=== PATIENT | female | born 1940 | race Caucasian/White ===

== ENCOUNTER 2017-05-25 20:18 | Emergency (ER) | payer OTHER ==
[~2017-05-25] VITALS: Ht 165.1 cm; Wt 59.4 kg
[2017-05-25 21:04] LABS: HEMATOCRIT 42.7 % (36.0-46.0); MCH 27.9 PG (29.0-34.0); MCHC 32.3 G/DL (30.0-36.0); MCV 86.3 FL (83-99); MEAN PLAT.VOLUME 10.3 uM^3 (9.5-12.4); PLATELET COUNT 200 K/uL (156-360); RBC DIS.WIDTH-CV 15.6 % (11.8-14.6); RBC DIS.WIDTH-SD 49.2 % (39-53); RED BLOOD COUNT 4.95 M/uL (3.80-5.20); WHITE BLOOD COUNT 9.4 K/uL (4.1-10.2)
[2017-05-25 21:29] LABS: ANION GAP 7 MEQ/L (2-14); CHLORIDE 102 MEQ/L (99-109); SAMPLE HEMOLYSIS CHECK 0; SAMPLE ICTERIC CHECK 0; SAMPLE LIPEMIA CHECK 0; SODIUM 140 MEQ/L (136-147)
[2017-05-25 21:34] LABS: GFR ESTIMATE (CALCULATED) > 59 mL/min/; GLUCOSE 118 mg/dL (70-99); UREA NITROGEN (BUN) 9 mg/dL (9-23)
[2017-05-25 21:48] LABS: INTER. NORMALIZED RATIO 2.8; PROTHROMBIN TIME 31.6 SEC (10.2-12.9)
[2017-05-25 21:50] LABS: PTT 40.1 SEC (25-37)
[2017-05-25] MEDS ORDERED: CELEXA20 MG PO (22:35)
[2017-05-25] MEDS ORDERED: ADULT ASPIRIN R81 MG PO (22:35)
[2017-05-25] MEDS ORDERED: SINGULAIR10 MG PO (22:35)
[2017-05-25] MEDS ORDERED: DIGOX125 MCG PO (22:35)
[2017-05-25] MEDS ORDERED: LISINOPRIL10 MG PO (22:35)
[2017-05-25] MEDS ORDERED: DUONEB 2.5-0.5 M3 ML AEROSOL (22:35)
[2017-05-25] MEDS ORDERED: GABAPENTIN100 MG PO (22:36)
[2017-05-25] MEDS ORDERED: ALPRAZOLAM0.5 MG PO (22:36)
[2017-05-25] MEDS ORDERED: COUMADIN3 MG PO (22:36)
[2017-05-25] MEDS ORDERED: COUMADIN2 MG PO (22:36)
[2017-05-25] MEDS ORDERED: ATENOLOL25 MG PO (22:36)
[2017-05-25] MEDS ORDERED: HYDROCODON-ACE1 EAC7 PO (22:37)
[2017-05-25] MEDS ORDERED: PROTONIX40 MG PO (22:37)
[2017-05-25] MEDS ORDERED: GLIPIZIDE5 MG PO (22:37)
[2017-05-25] MEDS ORDERED: DOXYCYCLINE MO100 M1 PO (23:00)
[2017-05-25 23:58] VITALS: BP 150/76
== END 2017-05-25 23:59 | disposition home or self-care (01) ==
LOC: EME 20:18
PROVIDERS: Emergency Medicine
DX: J18.9 Pneumonia, unspecified organism (principal); J44.0 Chronic obstructive pulmonary disease with (acute) lower respiratory infection; R04.2 Hemoptysis; R04.0 Epistaxis; I10 Essential (primary) hypertension; E11.40 Type 2 diabetes mellitus with diabetic neuropathy, unspecified; E78.5 Hyperlipidemia, unspecified; M79.7 Fibromyalgia; Z99.81 Dependence on supplemental oxygen; Z87.891 Personal history of nicotine dependence; Z79.82 Long term (current) use of aspirin; Z79.01 Long term (current) use of anticoagulants
CPT/HCPCS: 71020; 71260; 80048; 85027; 85610; 85730; 93005; 99281; 99285